=== PATIENT | female | born 1995 | race Caucasian/White ===

== ENCOUNTER 2024-01-31 13:54 | Outpatient (CLI) | payer MEDICARE, SELFPAY ==
--- NOTE | 2024-01-31 14:00 | CRLHL7_ITS ---
For Patients: As a result of the Cures Act, medical imaging exams and procedure reports are released immediately into your electronic medical record. You may view this report before your referring provider. If you have questions, please contact your health care provider. INDICATION: First trimester scan, establish dates. COMPARISON: None. TECHNIQUE: Real-time andrade-scale imaging of the pelvis was performed. FINDINGS: Sonographic imaging demonstrates a single living intrauterine gestation. The embryo demonstrates a regular cardiac rate measuring 152 beats per minute. The embryo`s crown-rump length measurement of 6.0 cm corresponds to a gestational age of 12 weeks 3 days with a sonographic due date of 08/11/2024. There is a normal-appearing yolk sac. There are no gross abnormalities noted within the embryo at this early state of development. The gestational sac has a normal appearance. There is a 2.9 x 0.9 x 1.1 cm perigestational hemorrhage. The amount of fluid within the sac appears appropriate for gestational age. The cervix is closed. The myometrium appears normal. Right ovary not visualized. Corpus luteal cyst left ovary. There are no suspicious fluid collections noted in the cul-de-sac. IMPRESSION: Single living intrauterine with sonographic gestational age 12 weeks 3 days and sonographic due date of 08/11/2024. Subchorionic hemorrhage measures 2.9 x 0.9 x 1.1 cm. Dictated by Sadiq Curtis MD @ 02/01/2024 7:53:39 AM (Electronically Signed)
== END 2024-01-31 13:55 | disposition home or self-care (01) ==
LOC: US 13:55
PROVIDERS: Visit Provider Registered Nurse
DX: Z34.91 Encounter for supervision of normal pregnancy, unspecified, first trimester (principal); O20.9 Hemorrhage in early pregnancy, unspecified; Z3A.12 12 weeks gestation of pregnancy
CPT/HCPCS: 76801; 87491; 87591

== ENCOUNTER 2024-01-31 14:58 | Outpatient (CLI) | payer MEDICARE, SELFPAY ==
[2024-01-31 19:30] LABS: Chlamydia DNA Amplified* NOT DETECTED (No Detected); GC DNA Amplified* NOT DETECTED (No Detected)
[2024-02-03 17:46] LABS: HPV Source Cervix; HPV, High Risk by TMA Not Detected
== END 2024-01-31 14:59 | disposition home or self-care (01) ==
PROVIDERS: Visit Provider Registered Nurse
DX: Z12.4 Encounter for screening for malignant neoplasm of cervix (principal); Z34.90 Encounter for supervision of normal pregnancy, unspecified, unspecified trimester
CPT/HCPCS: 87491; 87591; 87624; 87625; 88141; 88142

== ENCOUNTER 2024-03-27 14:31 | Outpatient (CLI) | payer MEDICARE, SELFPAY ==
--- NOTE | 2024-03-27 14:45 | CRLHL7_ITS ---
For Patients: As a result of the Century Cures Act, medical imaging exams and procedure reports are released immediately into your electronic medical record. You may view this report before your referring provider. If you have questions, please contact your health care provider. INDICATION: survey. TECHNIQUE: Conventional transabdominal two-dimensional grayscale ultrasound examination. COMPARISON: None. FINDINGS: There is a living fetus with gestational age of 20 weeks by LMP and 20 weeks 3 days by today`s measurements. EDC based on LMP is 08/14/2024. BPD: 4.7 cm, 20 weeks 2 days Head circumference: 17.7 cm, 20 weeks 1 day Abdominal circumference: 16.2 cm, 21 weeks 2 days Femur length: 3.1 cm, 19 weeks 4 days HC/AC: 1.09 The weight is estimated at 354 grams, the 71st percentile. The heart rate is measured at 141 beats per minute and the rhythm appears regular. The head and spine are grossly intact. No gross facial abnormality is evident. The upper lip is intact. Four cardiac chambers are demonstrated. The heart and stomach appear to be on the same side. The diaphragm is intact. Two kidneys and a bladder are demonstrated. The cord insertion is normal and three cord vessels are noted. Four extremities are demonstrated. The amniotic fluid volume is within normal limits. The placenta is anterior with no evidence of previa. The placenta is low-lying with the inferior edge of the placenta 1.4 cm from the internal os. The cervical length is normal at 5.9 cm. IMPRESSION: 1. Living fetus with gestational age of 20 weeks by LMP and 20 weeks 3 days by today`s measurements. EDC based on LMP is 08/14/2024. 2. No anomaly evident. 3. Anterior low-lying placenta with inferior placental edge 1.4 cm from the internal os. Dictated by Mele Mireles MD @ 03/30/2024 5:55:07 AM (Electronically Signed)
== END 2024-03-27 14:32 | disposition home or self-care (01) ==
LOC: US 14:32
PROVIDERS: Visit Provider Registered Nurse
DX: Z34.92 Encounter for supervision of normal pregnancy, unspecified, second trimester (principal); O44.42 Low lying placenta NOS or without hemorrhage, second trimester; Z3A.20 20 weeks gestation of pregnancy
CPT/HCPCS: 76805; 76817

== ENCOUNTER 2024-03-27 14:39 | Outpatient (CLI) | payer MEDICARE, SELFPAY ==
--- OUTSIDE RECORDS SUMMARY | 2024-03-31 23:42 | XMS_ITS | Encounter Summary ---
Author Organization [facility] Address [address] [place] [address]. [place] [address] Care Team Providers Care Ton Container Shipper Name Role Phone Sydney Weldon GIOVANNI [facility] Primary Care Pro vider Encounter Details Date Type Department Care Team (Late st Contact Info) Description 06/12/2021 External Order Results [facility] [address] [place] [address] Outside, Provider Social History Tobacco Use Types Packs/Day Years Used Date Smoking Tobacco: Never Smokeless Tobacco: Never Comments:non smoking home Alcohol Use Standard Drinks/Week Comments No 0 (1 standard drink = 0.6 oz pur e alcohol) [place] Depression Scale Answer Date Recorded [place] Depression Score 0 06/09/2020 Last EPDS Self Harm Result Not on file 06/09 Comments No Sex and Gender Information Value Date Recorded Sex Assigned at Not on file Legal Sex Female 4:49 AM HAM PUMPER Gender Identity Not on file Sexual Orientation Not on file documented as of this encounter Plan of Treatment Not on file documented as of this encounter Procedures Procedure Name Priority Date/Time Associated Diagnosis Comments HEPATITIS C ANTIBODY (EXTERNAL RESULT) Routine 06/12/2021 8:29 AM HAM PUMPER URINE CULTURE (OB EXTERNAL RESULT) Routine 06/12/2021 8:29 AM HAM PUMPER TREPONEMA PALLIDUM ANTIBODY (RPR) (EXTERNAL RESULT) Routine 06/12/2021 8:29 AM HAM PUMPER HIV 1&2 ANTIBODY (EXTERNAL RESULT) Routine 06/12/2021 8:29 AM HAM PUMPER RUBELLA ANTIBODY IGG (EXTERNAL RESULT) Routine 06/12/2021 8:29 AM HAM PUMPER ABO & RH (EXTERNAL RESULT) Routine 06/12/2021 8:29 AM HAM PUMPER GONORRHEA (EXTERNAL RESULT) Routine 06/12/2021 8:29 AM HAM PUMPER CHLAMYDIA TRACHOMATIS PCR (EXTERNAL RESULT) Routine 06/12/2021 8:29 AM HAM PUMPER CBC WITH PLATELETS & DIFFERENTIAL Routine 06/12/2021 8:29 AM HAM PUMPER HEPATITIS B SURFACE ANTIGEN Routine 06/12/2021 8:29 AM HAM PUMPER documented in this encounter Results * Gonorrhea (External Result) (06/12/2021 8:29 AM HAM PUMPER) N Gonorrhea PCR Negative Negative NON-INTERFACE D (ONBASE SCANS) 06/12/2021 8:29 AM HAM PUMPER Narrative BREEZE PFT - 06/26/2021 11:16 AM HAM PUMPER Verified by Sotero Kenney on 06/26/2021. us Provider Outside LAB - HIM EXTERNAL RESULT Edite d Result - Final ASIMEZE PFT NON-INTERFACED (ONBASE SCANS) * Chlamydia Trachomatis PCR (External Result) (06/12/2021 8:29 AM HAM PUMPER) Chlamydia Trachomatis PCR Negative Negative NON-INTERFAC E D (ONBASE SCANS) 06/12/2021 8:29 AM HAM PUMPER Narrative BREEZE PFT - 06/26/2021 11:16 AM HAM PUMPER Verified by Sotero Kenney on 06/26/2021. us Provider Outside LAB - HIM EXTERNAL RESULT Edite d Result - Final ASIMEZE PFT NON-INTERFACED (ONBASE SCANS) * Hepatitis C Antibody (External Result) (06/12/2021 8:29 AM HAM PUMPER) Hepatitis C Antibody (External) <0.1 0.0 - 0.9 ratio NON-INTERFACED (ONBASE SCANS) 06/12/2021 8:29 AM HAM PUMPER Narrative BREEZE PFT - 06/26/2021 11:16 AM HAM PUMPER Verified by Sotero Kenney on 06/26/2021. us Provider Outside LAB - HIM EXTERNAL RESULT Edite d Result - Final BREEZE PFT NON-INTERFACED (ONBASE SCANS) * Urine Culture (OB External Result) (06/12/2021 8:29 AM HAM PUMPER) Urine Culture OB Nurse Interpretation (External Result) No growth NON-INTERF AC ED (ONBASE SCANS) 06/12/2021 8:29 AM HAM PUMPER Narrative BREEZE PFT - 06/26/2021 11:16 AM HAM PUMPER Verified by Sotero Kenney on 06/26/2021. us Provider Outside LAB - HIM EXTERNAL RESULT Edite d Result - Final BREEZE PFT NON-INTERFACED (ONBASE SCANS) * CBC with Platelets & Differential (06/12/2021 8:29 AM HAM PUMPER) WBC Count (External) 6.7 3.4 - 10.8 x10E3/uL NON-INTERFACE D (ONBASE SCANS) RBC Count (External) 4.74 3.77 - 5.28 x10E6/uL NON-INTERFACE D (ONBASE SCANS) Hemoglobin (External) 13.7 11.1 - 15.9 g/dL NON-INTERFACE D (ONBASE SCANS) Hematocrit (External) 41.6 34.0 - 46.6 % NON-INTERFACE D (ONBASE SCANS) MCV (External) 88 79 - 97 fL NON- INTERFACE D (ONBASE SCANS) MCH (External) 28.9 26.6 - 33.0 pg NON-INTERFACE D (ONBASE SCANS) MCHC (External) 32.9 31.5 - 35.7 g/dL NON-INTERFACE D (ONBASE SCANS) RDW (External) 13.4 11.7 - 15.4 % NON-INTERFACE D (ONBASE SCANS) Platelet Count (External) 199 150 - 450 x10E3/uL NON-INTERFACE D (ONBASE SCANS) % Neutrophils (External) 62 Not Estab. % NON-INTERFACE D (ONBASE SCANS) % Lymphocytes (External) 27 Not Estab. % NON-INTERFACE D (ONBASE SCANS) % Monocytes (External) 8 Not Estab. % NON-INTERFACE D (ONBASE SCANS) % Eosinophils (External) 2 Not Estab. % NON-INTERFACE D (ONBASE SCANS) % Basophils (External) 1 Not Estab. % NON-INTERFACE D (ONBASE SCANS) Absolute Neutrophils (External) 4.2 1.4 - 7.0 x10E3/uL NON-INTERFACE D (ONBASE SCANS) Absolute Lymphocytes (External) 1.8 0.7 - 3.1 x10E3/uL NON-INTERFACE D (ONBASE SCANS) Absolute Monocytes (External) 0.5 0.1 - 0.9 x10E3/uL NON-INTERFACE D (ONBASE SCANS) Absolute Eosinophils (External) 0.1 0.0 - 0.4 x10E3/uL NON-INTERFACE D (ONBASE SCANS) Absolute Basophils (External) 0.0 0.0 - 0.2 x10E3/uL NON-INTERFACE D (ONBASE SCANS) % Immature Granulocytes (External) 0 Not Estab. % NON-INTERFACE D (ONBASE SCANS) Absolute Immature Granulocytes (External) 0.0 0.0 - 0.1 x10E3/uL NON-INTERFACE D (ONBASE SCANS) Blood 06/12/2021 8:29 AM HAM PUMPER Narrative MILES RANGEL - 06/26/2021 11:16 AM HAM PUMPER Verified by Carlos Manuel Arzola on 06/26/2021. us Provider Outside LAB - BLOOD ORDERABLES Edited R esult - Final BREEZE PFT NON-INTERFACED (ONBASE SCANS) * HIV-1 Antibody (External Result) (06/12/2021 8:29 AM HAM PUMPER) HIV 1&2 Antibody (External) Non Reactive NON REACTIVE NON-INTERFAC ED (ONBASE SCANS) 06/12/2021 8:29 AM HAM PUMPER Narrative BREEZE PFT - 06/26/2021 11:16 AM HAM PUMPER Verified by Carlos Manuel Arzola on 06/26/2021. us Provider Outside LAB - HIM EXTERNAL RESULT Edite d Result - Final MILES PFT NON-INTERFACED (ONBASE SCANS) * ABO & RH (External Result) (06/12/2021 8:29 AM HAM PUMPER) ABO (External) O NON-I NTERFACE D (ONBASE SCANS) Rh (External) Positive NON-IN TERFACE D (ONBASE SCANS) Comment:ANTIBODY SCREEN: Neg ative 06/12/2021 8:29 AM HAM PUMPER Narrative BREEZE PFT - 06/26/2021 11:16 AM HAM PUMPER Verified by Carlos Manuel Arzola on 06/26/2021. us Provider Outside LAB - HIM EXTERNAL RESULT Edite d Result - Final MILES PFT NON-INTERFACED (ONBASE SCANS) * Rubella Antibody IgG (External Result) (06/12/2021 8:29 AM HAM PUMPER) Rubella Antibody IgG (External) 13.70 IMMUNE >0.99 index NON-INTERFACED (ONBASE SCANS) 06/12/2021 8:29 AM HAM PUMPER Narrative BREEZE PFT - 06/26/2021 11:16 AM HAM PUMPER Verified by Carlos Manuel Arzola on 06/26/2021. us Provider Outside LAB - HIM EXTERNAL RESULT Edite d Result - Final BREEZE PFT NON-INTERFACED (ONBASE SCANS) * Treponema Pallidum Antibody (RPR) (External Result) (06/12/2021 8:29 AM HAM PUMPER) Treponema Palldum Antibody (External) Non Reactive NON REACTIVE NON-INTERFAC ED (ONBASE SCANS) 06/12/2021 8:29 AM HAM PUMPER Narrative BREEZE PFT - 06/26/2021 11:16 AM HAM PUMPER Verified by Carlos Manuel Arzola on 06/26/2021. us Provider Outside LAB - HIM EXTERNAL RESULT Edite d Result - Final Performing Organization Address [facility] Co de Phone Number BREEZE PFT NON-INTERFACED (ONBASE SCANS) * Hepatitis B surface antigen (06/12/2021 8:29 AM HAM PUMPER) Hep B Surface Agn (External) Negative NEGATIVE NON-INTERFACE D (ONBASE SCANS) Blood 06/12/2021 8:29 AM HAM PUMPER Narrative BREEZE PFT - 06/26/2021 11:16 AM HAM PUMPER Verified by Carlos Manuel Arzola on 06/26/2021. us Provider Outside LAB - BLOOD ORDERABLES Edited R esult - Final Performing Organization Address City/[facility]/ZIP Co de Phone Number BREEZE PFT NON-INTERFACED (ONBASE SCANS) documented in this encounter Visit Diagnoses Not on filedocumented in this encounter Care Teams Ton Container Shipper Relationship Specialty Start Date End Date Sydney Weldon APRN CN [facility] OBGYN CONSULT [address] [facility] [address] [place] [address] PCP - General Midwives 10/10/17 documented as of this encounter
--- OUTSIDE RECORDS SUMMARY | 2024-03-31 23:42 | XMS_ITS | Encounter Summary ---
Author Organization [facility] Address [address] [place] [address]. [place] [address] Care Team Providers Care Lawn Mower Mechanic Name Role Phone Sydney Weldon [facility]OVANNI [facility] Primary Care Pro vider Encounter Details Date Type Department Care Team (Late st Contact Info) Description 12/08/2021 External Order Results [facility] [address] [place] [address] Outside, Provider Social History Tobacco Use Types Packs/Day Years Used Date Smoking Tobacco: Never Smokeless Tobacco: Never Comments:non smoking home Alcohol Use Standard Drinks/Week Comments No 0 (1 standard drink = 0.6 oz pur e alcohol) [place] Depression Scale Answer Date Recorded [place] Depression Score 0 06/09/2020 Last EPDS Self Harm Result Not on file 06/09 Comments No Sex and Gender Information Value Date Recorded Sex Assigned at Not on file Legal Sex Female 4:49 AM EXECUTIVE CYBER LEADER Gender Identity Not on file Sexual Orientation Not on file documented as of this encounter Plan of Treatment Not on file documented as of this encounter Procedures Procedure Name Priority Date/Time Associated Diagnosis Comments HEMOGLOBIN Routine 12/08/2021 8:30 AM CDT documented in this encounter Results * Hemoglobin (12/08/2021 8:30 AM CDT) Hemoglobin (External) 12.1 12.0 - 15.0 G/DL NON-INTERFACED (ONBASE SCANS) Blood 12/08/2021 8:30 AM CDT Narrative MILES PFT - 12/15/2021 8:49 AM CDT Verified by Sotero Kenney on 12/15/2021. us Provider Outside LAB - BLOOD ORDERABLES Edited R esult - Final MILES PFT NON-INTERFACED (ONBASE SCANS) documented in this encounter Visit Diagnoses Not on filedocumented in this encounter Care Teams Lawn Mower Mechanic Relationship Specialty Start Date End Date Sydney Weldon APRN CNM [facility] OBGYN CONSULT [address] [place] [address] PCP - General Midwives 10/10/17 documented as of this encounter
--- OUTSIDE RECORDS SUMMARY | 2024-03-31 23:42 | XMS_ITS | Referral Summary ---
Author Organization [facility] Address [address] [place] [address]. [place] [address] Care Team Providers Care Copy Center Associate Name Role Phone Sydney Weldonhleen GIOVANNI [facility] Primary Care Pro vider Allergies No known active allergies Medications Vit-Fe Fumarate-FA ( MULTIVITAMIN PLUS IRON) 27-0.8 MG TABS per tablet Take 1 tablet by mouth daily Active acetaminophen (TYLENOL) 325 MG tabletIndications :Normal labor and delivery Take 2 tablets (650 mg) by mouth every 4 hours as needed for mild pain or fever (greater than or equal to 38 C /100.4 F (oral) or 38.5 C/ 101.4 F (core).) 1 Active ibuprofen (ADVIL/MOTRIN) 800 MG tabletIndications :Normal labor and delivery Take 1 tablet (800 mg) by mouth every 6 hours as needed for other (cramping) 1 Active Active Problems Problem Noted Date Diagnosed Date Encounter for triage in patient 022 Indication for care in labor or delivery 018 Normal labor and delivery 11/17/2017 Immunizations Name Administration Dates Next Due TDAP (Adacel,Boostrix) 01/05/2022() Social History Tobacco Use Types Packs/Day Years Used Date Smoking Tobacco: Never Smokeless Tobacco: Never Comments:non smoking home Alcohol Use Standard Drinks/Week Comments No 0 (1 standard drink = 0.6 oz pur e alcohol) [place] Depression Scale Answer Date Recorded Last EPDS Total Score Not on file 01/04/2022 The thought of harming myself has occurred to me . Never 01/04/2022 Adolescent Education Answer Date Record ed Getting School Help Needed Not on file 02/09 Comments No Sex and Gender Information Value Date Recorded Sex Assigned at Not on file Legal Sex Female 4:49 AM COTTON BUYER Gender Identity Not on file Sexual Orientation Not on file Last Filed Vital Signs Vital Sign Reading Time Taken Comments Blood Pressure 131/59 01/05/2022 8:30 AM CDT Pulse 74 01/05/2022 8:30 AM CDT Temperature 36.9 C (98.5 F) 01/05/2022 8:30 AM CDT Respiratory Rate 16 01/05/2022 8:30 AM CDT Oxygen Saturation - - Inhaled Oxygen Concentration - - Weight 71.2 kg (157 lb) 08/05/2015 4:32 PM CDT Height 177.8 cm (5' 10) 06/08/2020 11:35 PM COTTON BUYER Body Mass Index - - Plan of Treatment Not on file Procedures Procedure Name Priority Date/Time Associated Diagnosis Comments HIV 1&2 ANTIBODY (EXTERNAL RESULT) Routine 06/12/2021 8:29 AM COTTON BUYER HEPATITIS C ANTIBODY (EXTERNAL RESULT) Routine 06/12/2021 8:29 AM COTTON BUYER from Last 3 Months or Most Recently Relevant to Health Maintenance Results * Hepatitis C Antibody (External Result) (06/12/2021 8:29 AM COTTON BUYER) Hepatitis C Antibody (External) <0.1 0.0 - 0.9 ratio NON-INTERFACED (ONBASE SCANS) 06/12/2021 8:29 AM COTTON BUYER Narrative MILES PFT - 06/26/2021 11:16 AM COTTON BUYER Verified by Sotero Kenney on 06/26/2021. us Provider Outside LAB - HIM EXTERNAL RESULT Edite d Result - Final MILES PFT NON-INTERFACED (ONBASE SCANS) * HIV-1 Antibody (External Result) (06/12/2021 8:29 AM COTTON BUYER) HIV 1&2 Antibody (External) Non Reactive NON REACTIVE NON-INTERFAC ED (ONBASE SCANS) 06/12/2021 8:29 AM COTTON BUYER Narrative MILES RANGEL - 06/26/2021 11:16 AM COTTON BUYER Verified by Carlos Manuel Arzola on 06/26/2021. us Provider Outside LAB - HIM EXTERNAL RESULT Edite d Result - Final MILES RANGEL NON-INTERFACED (ONBASE SCANS) from Last 3 Months or Most Recently Relevant to Health Maintenance Advance Directives For more information, please contact: [phone] * Full Code (Latest Code Status on File) Date Activated Date Inactivated Comments 01/04/2022 6:55 AM 01/05/2022 2:45 PM All basic an d advanced life-sustaining interventions are performed as appropriate Question Answer Comments Code status determined by: Other (please tori t) * Full Code Date Activated Date Inactivated Comments 01/03/2022 8:13 PM 01/04/2022 5:39 AM All basic an d advanced life-sustaining interventions are performed as appropriate Question Answer Comments Code status determined by: Discussion with patie nt/ legal decision maker * Full Code Date Activated Date Inactivated Comments 06/09/2020 5:28 PM 06/10/2020 3:53 PM All basic an d advanced life-sustaining interventions are performed as appropriate Question Answer Comments Code status determined by: Discussion with patie nt/ legal decision maker Care Teams Copy Center Associate Relationship Specialty Start Date End Date Sydney Weldon APRN CNM [facility] OBGYN CONSULT [address] [place] [address] PCP - General Midwives 10/10/17
--- OUTSIDE RECORDS SUMMARY | 2024-03-31 23:42 | XMS_ITS | Clinical Summary ---
Author Organization [facility] Address [address] [place] [address]. [place] [address] Care Team Providers Care Terrestrial Ecologist Name Role Phone Sydney Weldonhleen GIOVANNI [facility] Primary Care Pro vider Allergies No known [...] drink = 0.6 oz pur e alcohol) [place] Depression Scale Answer Date Recorded Last EPDS Total Score Not on file 01/04/2022 The thought of harming myself has occurred to me . Never 01/04/2022 Adolescent Education Answer Date Record ed Getting School Help Needed Not on file 02/09 Comments No Sex and Gender Information Value Date Recorded Sex Assigned at Not on file Legal Sex Female 4:49 AM COSMETIC ASSEMBLER Gender Identity Not on file Sexual Orientation [...] 177.8 cm (5' 10) 06/08/2020 11:35 PM COSMETIC ASSEMBLER Body Mass Index - - Plan of Treatment Health Maintenance Due Date Last Done Comments ADVANCE CARE PLANNING 1993 ANNUAL REVIEW OF HM ORDERS 1993 YEARLY PREVENTIVE VISIT 1993 HEPATITIS B IMMUNIZATION (1 of 3 - 19+ 3-dose series) 2012 PAP 2014 DTAP/TDAP/TD IMMUNIZATION (1 - Tdap) 2018 PHQ-2 (once per calendar year) 2023 COVID-19 Vaccine (1 - 2023-2 5 season) 2024 INFLUENZA VACCINE (#1) 2024 RSV VACCINE (1 - 1-dose 75+ series) 2068 HEPATITIS C SCREENING Completed 06/12/2021 HIV SCREENING Completed 06/12/2021, 11/10/2019, 05/01/2017 HPV IMMUNIZATION Aged Out No longer e ligible based on patient's age to complete this topic MENINGITIS IMMUNIZATION Aged Out No l onger eligible based on patient's age to complete this topic Pneumococcal Vaccine: Pediatrics (0 to 5 Years) and At-Risk Patients (6 to 64 Years) Aged Out No longer eligible b ased on patient's age to complete this topic RSV MONOCLONAL ANTIBODY Aged Out No l onger eligible based on patient's age to complete this topic Procedures Procedure Name Priority Date/Time Associated Diagnosis Comments HIV 1&2 ANTIBODY (EXTERNAL RESULT) Routine 06/12/2021 8:29 AM COSMETIC ASSEMBLER HEPATITIS C ANTIBODY (EXTERNAL RESULT) Routine 06/12/2021 8:29 AM COSMETIC ASSEMBLER from Last 3 Months or Most Recently Relevant to Health Maintenance Results * Hepatitis C Antibody (External Result) (06/12/2021 8:29 AM COSMETIC ASSEMBLER) Hepatitis C Antibody (External) <0.1 0.0 - 0.9 ratio NON-INTERFACED (ONBASE SCANS) 06/12/2021 8:29 AM COSMETIC ASSEMBLER Narrative BREEZE PFT - 06/26/2021 11:16 AM COSMETIC ASSEMBLER Verified by Sotero Kenney on 06/26/2021. Provider Outside LAB - HIM EXTERNAL RESULT Edite d Result - Final BREEZE PFT NON-INTERFACED (ONBASE SCANS) * HIV-1 Antibody (External Result) (06/12/2021 8:29 AM COSMETIC ASSEMBLER) HIV 1&2 Antibody (External) Non Reactive NON REACTIVE NON-INTERFAC ED (ONBASE SCANS) 06/12/2021 8:29 AM COSMETIC ASSEMBLER Narrative BREEZE PFT - 06/26/2021 11:16 AM COSMETIC ASSEMBLER Verified by Carlos Manuel Arzola on 06/26/2021. us Provider Outside LAB - HIM EXTERNAL RESULT Edite d Result - Final BREEZE PFT NON-INTERFACED (ONBASE SCANS) from Last 3 Months or Most Recently Relevant to Health Maintenance Advance Directives For more information, please contact: [phone] * Full Code (Latest Code Status on File) Date Activated Date Inactivated Comments 01/04/2022 6:55 AM 01/05/2022 2:45 PM All basic an d advanced life-sustaining interventions are performed as appropriate Question Answer Comments Code status determined by: Other (please documen t) * Full Code Date Activated Date Inactivated Comments 01/03/2022 8:13 PM 01/04/2022 5:39 AM All basic an d advanced life-sustaining interventions are performed as appropriate Question Answer Comments Code status determined by: Discussion with zahra nt/ legal decision maker * Full Code Date Activated Date Inactivated Comments 06/09/2020 5:28 PM 06/10/2020 3:53 PM All basic an d advanced life-sustaining interventions are performed as appropriate Question Answer Comments Code status determined by: Discussion with zahra nt/ legal decision maker Care Teams Terrestrial Ecologist Relationship Specialty Start Date End Date Sydney Weldon APRN CNM [facility] OBGYN CONSULT [address] [address] PCP - General Midwives 10/10/17
--- OUTSIDE RECORDS SUMMARY | 2024-03-31 23:42 | XMS_ITS | Encounter Summary ---
Author Organization [facility] Address [address] [place] [address]. [place] [address] Care Team Providers Care Outsoles Channel Opener Name Role Phone Sydney Weldon GIOVANNI [facility] Primary Care Pro vider Encounter Details Date Type Department Care Team (Late st Contact Info) Description 01/03/2022 Orders Only [facility] Centralized Scheduling [address] [place] [address] Chas Stack MD [address] [place] [address] Encounter for laboratory testing for COVID-19 virus Social History Tobacco Use Types Packs/Day Years Used Date Smoking Tobacco: Never Smokeless Tobacco: Never Comments:non smoking home Alcohol Use Standard Drinks/Week Comments No 0 (1 standard drink = 0.6 oz pur e alcohol) Hoyt Depression Scale Answer Date Recorded Last EPDS Total Score Not on file 01/04/2022 The thought of harming myself has occurred to me . Never 01/04/2022 Comments Yes Sex and Gender Information Value Date Recorded Sex Assigned at Not on file Legal Sex Female 4:49 AM SAP TECHNICAL DEVELOPER Gender Identity Not on file Sexual Orientation Not on file COVID-19 Exposure Response Date Recorded In the last 10 days, have yo u been in contact with someone who was confirmed or suspected to have Coronavirus/COVID-19? No / Unsure 01/03/2022 7:58 PM CDT documented as of this encounter Plan of Treatment Not on file documented as of this encounter Visit Diagnoses Diagnosis Encounter for laboratory testing for COVID-19 virus documented in this encounter Care Teams Outsoles Channel Opener Relationship Specialty Start Date End Date Shiraz Sydney GIOVANNI Conti [facility] [address] [facility] [address] [place] [address] PCP - [facility] 10/10/17 documented as of this encounter
== END 2024-03-27 14:40 | disposition home or self-care (01) ==
LOC: NFLDREF 03-31 23:40
PROVIDERS: Visit Provider Registered Nurse
DX: Z34.92 Encounter for supervision of normal pregnancy, unspecified, second trimester (principal); O44.42 Low lying placenta NOS or without hemorrhage, second trimester; Z3A.20 20 weeks gestation of pregnancy
CPT/HCPCS: 86592; 86703; 86704; 86706; 86762; 86787; 86803; 86850; 86900; 86901; 87086; 87340

== ENCOUNTER 2024-06-12 12:45 | Outpatient (CLI) | payer BC, SELFPAY | END 2024-06-12 12:46 | disposition home or self-care (01) | LOC: NFLDREF 06-17 08:04 | PROVIDERS: Visit Provider Midwife | DX: O44.43 Low lying placenta NOS or without hemorrhage, third trimester (principal); Z3A.32 32 weeks gestation of pregnancy | CPT/HCPCS: 86592 ==

== ENCOUNTER 2024-06-12 12:50 | Outpatient (CLI) | payer BC, SELFPAY | END 2024-06-12 12:51 | disposition home or self-care (01) | LOC: US 12:50 | PROVIDERS: Visit Provider Registered Nurse | DX: O44.43 Low lying placenta NOS or without hemorrhage, third trimester (principal); Z3A.32 32 weeks gestation of pregnancy | CPT/HCPCS: 76816; 76817 ==

== ENCOUNTER 2024-07-24 12:50 | Outpatient (CLI) | payer BC, SELFPAY ==
[2024-07-25 17:07] LABS: Strep B DNA Probe Negative (Negative)
[2024-07-25 17:08] LABS: Strep B Susceptibility Needed? No
== END 2024-07-24 12:51 | disposition home or self-care (01) ==
LOC: FRMREF 12:50
PROVIDERS: Visit Provider Obstetrics & Gynecology
DX: Z34.93 Encounter for supervision of normal pregnancy, unspecified, third trimester (principal); Z3A.37 37 weeks gestation of pregnancy
CPT/HCPCS: 87081; 87653

== ENCOUNTER 2024-08-10 11:43 | Inpatient (IN) | payer BC, SELFPAY ==
[2024-08-10] VITALS (27 sets, daily range): BP systolic 113–142; BP diastolic 62–82; PULSE 55–85; RESP 16–18; TEMP 36.7–37.1; O2SAT 96–100; BMI 29.1
--- NOTE | 2024-08-10 12:30 | P.LDBA_ITS ---
Subjective History of Present Illness Date Seen: 08/10/24 Narrative: Sofi is being admitted to Labor and Delivery for spontaneous labor. She is a 28 year old at 39.3 weeks gestation. Her full history and physical was dictated by Dr. Lake on 07/24/24. Please see this for details. Specific Issues/Plans : Uriel. Children: Loreto, Meng, Jemal. Baby: boy:) Hep B nonimmune. Discuss at next visit.[] H&P:CGM on 07/24/24 # Missed appointments from 31 weeks to 37 weeks # low lying placenta resolved, 3.0cm from os @ 31wks # Hx hemorrhage-after first Genetic testing: declined COVID: Not vaccinated. Declined. Flu: declined Tdap: declined RSV: declined 32 week mental health: [] Last pap: Pt. denies h/o abnormal pap. OB - Problem Based A/P Additional Plan (1) Pain during labor: Status: Acute (2) 39 weeks gestation of : Status: Acute Plan Assessment:??G 4 P 3 at 39.3 weeks gestation?? GBS negative? Patient is coping well with challenges of labor.?? Labor type: Spontaneous, Active labor? Category 1 FHR pattern.? complicated by: gap in care from 31-37 week, hx of hemorrhage Plan:?? * ?Admit to L & D? * IV access: NA * Monitoring per policy: intermittent? * Candidate for analgesia of choice.? Planning nitrous for pain management * Desires waterbirth.? Consent signed and Hep C negative. * Expectant management at this time ? * Patient encouraged to reposition and ambulate to promote physiologic labor and . * Anticipate ? Delivery/Labor/Induction Plan Plan: expectant management OB Exam Physical Exam Vital signs: Temp Pulse Resp BP Pulse Ox 98.4 F 75 18 123/69 97 08/10/24 09:29 08/10/24 09:21 08/10/24 09:29 08/10/24 09:21 08/10/24 09:18 Narrative: Vitals Reviewed Constitutional:? Alert and oriented x3 HEENT:? Normocephalic, atraumatic Neck:? Supple Lungs:? Clear to auscultation bilaterally Heart:? Regular rate and rhythm, no murmur, rub or gallop Abdomen:? Soft, nontender, and gravid. Vertex by Pee's, confirmed with cervical exam. Extremities:? No edema or erythema Cervix: 6 cm/90%/-1 station/vertex per RN NST: 130 bpm/moderate variability/+accelerations/- decelerations/moderatecontractions Detailed Labor and Delivery Exam Patient Gravid: Yes
[2024-08-10 13:03] LABS: Basophils Percent Auto 0.1 % (0.0-3.0); Eosinophils Percent Auto 0.2 % (0.0-7.0); Hematocrit 37.8 % (33.0-51.0); Hemoglobin* 13.1 gm/dL (12.0-16.0); Immature Granulocytes Pct Auto 0.3 %; Lymphocytes Percent Auto 8.1 % (20-44); Mean Corpuscular HGB Conc 35 gm/dL (32-36); Mean Corpuscular Hemoglobin 29 pg (26-34); Mean Corpuscular Volume 85 fL (80-100); Monocytes Percent Auto 4.6 % (0.0-11.0); Neutrophils Percent Auto 86.7 % (42.0-72.0); Platelet Count* 203 K/uL (140-440); RDW Coefficient of Variation % 12.7 % (11.5-15.5); Red Blood Count 4.45 m/uL (4.00-5.20); White Blood Count* 14.28 K/uL (4.50-11.00)
[2024-08-10 13:12] LABS: Slide Review Reflex No
[2024-08-10] MEDS: LACTATED RINGERS 1000 ML 1,000 ML 900 ML IV (13:44)
[2024-08-10] MEDS: fentaNYL 100 MCG/2 ML inj 25 MCG INTRATHECA (14:10)
--- NOTE | 2024-08-10 14:16 | PM.ANBPRC ---
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 . What is your current living situation?: I presently have a place to live In the past 12 months, utilities in danger of being shut off: no In past 12 months, lack of transportation kept you from medical appts, meetings, work, or getting things needed for daily living: no In the past 12 mos, have been you worried that your food would run out before you had money to buy more?: never true In the past 12 mos, the food you bought just didn't last and you didn't have money to buy more?: never true Smoking Status: Never smoker How often does anyone, including family, friends and others, physically hurt you: never How often does anyone, including family, friends and others, insult or talk down to you: never How often does anyone, including family, friends and others, threaten you with harm: never How often does anyone, including family, friends and others, scream or curse at you: never Meds Home Medications and Allergies Home Medications ?Medication ?Instructions ?Recorded ?Confirmed ?Type B.coagulans 2 billion cap PO 01/31/24 08/05/24 History cell-digestive enzymes combo no.10 capsule (Digestive Advantage Probiotics Plus Gas) docosahexaenoic acid 200 mg mg PO 01/31/24 08/05/24 History capsule ( DHA) cholecalciferol (vitamin D3) 50 50 mcg PO QDAY 06/12/24 08/05/24 History mcg (2,000 unit) capsule Allergies Allergy/AdvReac Type Severity Reaction Status Date / Time No Known Drug Allergies Allergy Verified 08/05/24 13:45 Results Labs Labs: Laboratory Results - last 24 hr 08/10/24 12:52 WBC 14.28 H RBC 4.45 Hgb 13.1 Hct 37.8 MCV 85 MCH 29 MCHC 35 RDW Coeff of Merle 12.7 Plt Count 203 Neut % (Auto) 86.7 H Lymph % (Auto) 8.1 L [place] % (Auto) 4.6 Eos % (Auto) 0.2 Baso % (Auto) 0.1 Neut # (Auto) 12.40 H Lymph # (Auto) 1.20 [place] # (Auto) 0.70 Eos # (Auto) 0.00 Baso # (Auto) 0.00 Abs Immat Gran (auto) 0.00 Imm/Tot Granulo (auto) 0.3 Vital Signs Vital Signs: Last Vital Signs Temp 98.4 F 08/10/24 09:29 Pulse 76 08/10/24 14:15 Resp 18 08/10/24 09:29 BP 115/76 08/10/24 14:15 Pulse Ox 98 08/10/24 14:13 Weight: 92.079 kg Height: 177.8 cm Anesthesia Procedures Intrathecal Patient Location: OB Start Time: 14:00 Stop Time: 14:15 Start Date: 08/10/24 Stop Date: 08/10/24 Reason for Block: procedure for pain Patient Position: sitting Performed By: Manjit Najera Preanesthetic Checklist: IV checked, risks and benefits discussed, surgical consent, monitors and equipment checked, pre-op evaluation, timeout performed and anesthesia consent Prep: chlorhexidine gluconate Monitoring: blood pressure monitoring, continuous pulse oximetry and heart rate Approach: midline Vertebral Space: lumbar (1-5) Needle Type: Saray Injection Technique: single-shot Needle gauge: 25 Needle Length (cm): 10 cm
--- NOTE | 2024-08-10 15:21 | PM.OBPNL ---
Subjective Time Seen by Provider: 14:44 Date Seen: 08/10/24 Narrative: ?Sofi is coping well with labor pain/contractions she was using nitrous for pain management but recently asked for an ITN and is now comfortable with her contractions. ?Uriel is with her for support. ?She requested AROM which was done for small amount of clear fluid seen. ? Objective Exam: VSS, afebrile General Appearance:? Calm, cooperative. ?No acute distress. ? Psychiatric Exam: Alert and oriented, appropriate affect Abdomen: Gravid Ctx: ?Q 2-5 min apart. ? ? ?Strong FHTs: ?Baseline: 130. ? ? Variability: moderate. ?Accels: +. ? ?Decels: ?-. SVE: 8/0 Membranes: ?AROM clear Vital Signs: Last Vital Signs Temp 98.1 F 08/10/24 14:29 Pulse 61 08/10/24 15:16 Resp 18 08/10/24 14:29 BP 120/68 08/10/24 15:16 Pulse Ox 98 08/10/24 14:23 Plan Plan: Assessment:?? at 39.3 weeks gestation?? GBS negative Patient is coping well with challenges of labor.?? Labor type: Spontaneous, Active labor? Category 1 FHR pattern.? complicated by: gap in care from 31-37 week, hx of hemorrhage Labor complicated by: none? Plan:?? Continue with routine intrapartum cares as ordered.?? Patient encouraged to move and change positions to promote physiologic labor and .?? Nonpharmacologic comfort measures per patient preference. ITN per anesthesia already placed Anticipate progress to NVD. ?
[2024-08-10] MEDS: OXYTOCIN 30 unit/500 ML in NS 30 UNIT/500 ML BAG 300 UNIT IVPB (16:29)
--- NOTE | 2024-08-10 17:21 | W.PM.VAGDE_ITS ---
OB Procedure Vag Delivery Mother Details Mother Details: The patient is a 28 year-old, 4, Para 3, admitted on 08/10/24 at 39.3 weeks gestation. : 4 Para: 4 Weeks Gestation: 39.3 Admission Date: 08/10/24 Additional Details Amniotic Membrane Status: AROM Amniotic Membrane Rupture Date: 08/10/24 Amniotic Membrane Rupture Time: 14:44 Amniotic Membrane Fluid Description: Clear Analgesia/Anesthesia Type: Intrathecal Waterbirth: No Pitcoin: Yes (for AMTSL) Intrapartal Events: None Delivery augmentation: rupture of membranes Labor Onset: 08:00 Complete: 16:16 Pushin:20 Heart: heart tones during second stage were Category I FHR 135 Delivery Details Delivery Date: 08/10/24 Delivery Time: 16:21 Route of delivery: Gender: Male Infant Viability: Alive; Heart Rate Present Position at Delivery: OA Delivery Details: 28?y.o?at 39.3 weeks.? Sofi arrived to the unit with complaints of irregular contractions starting yesterday afternoon which increased in regularity around 0800 today. She labored in her rom and was managing her pain with nitrous then requested and intrathecal for pain management. She progressed normally to 9cm. AROM was offered to her and she requested this. At 1444 AROM for small amount of clear fluid was done. She began to complain of back pressure and resumed use of nitrous with contractions. ? ? She became complete at 1616.??She pushed in left side positions effectively.??? Over one contraction she pushed baby out in excellent control, taking pauses when prompted. ? Spontaneous vaginal delivery at 1621 of?a viable?male .??Delivered in ve rtex OA position.??Shoulders delivered easily.? Spontaneous cry noted.??Infant placed on maternal abdomen.??Cord?was clamped and cut after a 5+ minute delay.??Nose and mouth were bulb suctioned.? Shoulder dystocia: no? Nuchal cord: no? Meconium stained?fluid: no? Water : no? ? ? 8 at 1 minute and 9 at 5 minutes.? Weight is pending. ? Placenta delivered spontaneously and?complete?at 1645 with a?3 vessel?cord.? There was approximately 200ml of blood with clots delivered with the placenta. ? Bleeding controlled with fundal massage and?pitocin?for AMTSL.? ? Lacerations:?none, intact ? Bleeding?post delivery?was: moderate. ?The fundus was firm to palpation.? Blood loss: 600?mL.? Blood loss measurement type: QBL? ? ? Sponge,?lap?and needles counts are correct.? Mother and infant were stable after delivery.? 1 Minute Interval Total Score: 8 5 Minute Interval Total Score: 9 Additional Details Shoulder Dystocia: No Placenta Delivery Time: 16:45 Placental Delivery Description: Spontaneous Procedure Done: Global Blood Loss: 600 Laceration: None Blood Loss Measurement Type: QBL Bakri Used: No Sponge/Need Count Correct: Yes Cord Vessel Description: 3 Vessels Event Summary Status: Mother and were stable after delivery. Disposition: floor
[2024-08-10] MEDS: ACETAMINOPHEN 500 MG TABLET 1000 MG PO (19:39)
[2024-08-11] MEDS: IBUPROFEN 600 MG TABLET PO ×3 (01:09→13:53)
[2024-08-11 01:12] VITALS: BP 106/69; PULSE 79; RESP 14; TEMP 36.9; O2SAT 97
[2024-08-11] MEDS: ACETAMINOPHEN 500 MG TABLET 1000 MG PO ×3 (01:57→15:52)
[2024-08-11 04:20] VITALS: BP 111/66; PULSE 69; RESP 16; TEMP 36.8; O2SAT 96
[2024-08-11] MEDS: DOCUSATE SODIUM 100 MG CAPSULE PO ×3 (04:38→17:25)
[2024-08-11 06:20] LABS: Hemoglobin* 10.9 gm/dL (12.0-16.0)
[2024-08-11 07:35] VITALS: BP 121/76; PULSE 81; RESP 16; O2SAT 96
--- NOTE | 2024-08-11 07:46 | P.DS_ITS ---
DS: Providers Provider Date Seen: 08/11/24 Date of admission: 08/10/24 11:43 Primary care physician: Not a Local Provider Admitting Clinician: Jose Vazquez CNM Attending Physician on discharge: Merari ROSENBERG APRN Date of Discharge: 08/11/24 DS: Diagnosis Discharge Diagnosis (1) care and examination of lactating mother: Status: Acute Exam Narrative: Exam Narrative: GENERAL APPEARANCE:? normal affect, alert, no distress MOOD:? appropriate CHEST:? clear to auscultation HEART:? regular rate and rhythm ABDOMEN:? soft, non-tender the uterine fundus is 3 cm below umbilicus, Midline and is appropriate for the stage of recovery. PERINEUM:? deferred, no lacerations EXTREMITIES:? normal and no edema Const: Vital Signs, click to edit/add: Vital Signs - 24 hr 08/10/24 09:18 08/10/24 09:21 08/10/24 09:29 Temperature 98.4 F Pulse Rate 75 Pulse Rate [Pulse Oximeter] Respiratory Rate 18 Blood Pressure 123/69 Blood Pressure [Ri ght Arm] Pulse Oximetry 97 Oxygen Delivery Me thod 08/10/24 14:03 08/10/24 14:07 08/10/24 14:08 Temperature Pulse Rate 55 L Pulse Rate [Pulse Oximeter] Respiratory Rate Blood Pressure 132/68 Blood Pressure [Ri ght Arm] Pulse Oximetry 100 100 Oxygen Delivery Me thod 08/10/24 14:09 08/10/24 14:11 08/10/24 14:13 Temperature Pulse Rate 60 62 65 Pulse Rate [Pulse Oximeter] Respiratory Rate Blood Pressure 127/70 123/70 122/70 Blood Pressure [Ri ght Arm] Pulse Oximetry 98 Oxygen Delivery Me thod 08/10/24 14:15 08/10/24 14:17 08/10/24 14:18 Temperature Pulse Rate 76 67 Pulse Rate [Pulse Oximeter] Respiratory Rate Blood Pressure 115/76 113/68 Blood Pressure [Ri ght Arm] Pulse Oximetry 99 Oxygen Delivery Me thod 08/10/24 14:23 08/10/24 14:29 08/10/24 14:29 Temperature 98.1 F Pulse Rate 71 70 Pulse Rate [Pulse Oximeter] Respiratory Rate 18 Blood Pressure 115/67 118/63 Blood Pressure [Ri ght Arm] Pulse Oximetry 98 Oxygen Delivery Me thod 08/10/24 14:47 08/10/24 15:02 08/10/24 15:16 Temperature Pulse Rate 60 60 61 Pulse Rate [Pulse Oximeter] Respiratory Rate Blood Pressure 120/64 116/62 120/68 Blood Pressure [Ri ght Arm] Pulse Oximetry Oxygen Delivery Me thod 08/10/24 15:31 08/10/24 16:13 08/10/24 16:46 Temperature 98.1 F Pulse Rate 65 66 Pulse Rate [Pulse Oximeter] Respiratory Rate 18 Blood Pressure 118/66 128/82 Blood Pressure [Ri ght Arm] Pulse Oximetry Oxygen Delivery Me thod 08/10/24 17:00 08/10/24 17:15 08/10/24 17:30 Temperature Pulse Rate 76 73 62 Pulse Rate [Pulse Oximeter] Respiratory Rate Blood Pressure 133/78 137/79 142/80 H Blood Pressure [Ri ght Arm] Pulse Oximetry Oxygen Delivery Pa thod 08/10/24 18:02 08/10/24 18:15 08/10/24 18:30 Temperature Pulse Rate 64 74 66 Pulse Rate [Pulse Oximeter] Respiratory Rate Blood Pressure 115/74 121/69 115/63 Blood Pressure [Ri ght Arm] Pulse Oximetry Oxygen Delivery Pa thod 08/10/24 18:30 08/10/24 19:42 08/11/24 01:12 Temperature 98.7 F 98.1 F 98.5 F Pulse Rate Pulse Rate [Pulse Oximeter] 85 79 Respiratory Rate 16 14 Blood Pressure Blood Pressure [Ri ght Arm] 116/78 106/69 Pulse Oximetry 96 [facility] 08/11/24 04:20 08/11/24 07:35 Temperature 98.3 F Pulse Rate Pulse Rate [Pulse Oximeter] 69 81 Respiratory Rate 16 16 Blood Pressure Blood Pressure [Ri ght Arm] 111/66 121/76 Pulse Oximetry 96 96 Oxygen Delivery Me od Room Air Room Air OB - DS: Summary Hospital Course Hospital Course: Sofi is a 28 y.o. G 4 now P 4004 who was admitted to L & D for spontaneous labor.? She had a NVD that was uncomplicated. The patient feels well.? The pain is well controlled with current medications.? She has no new complaints.? She is breast feeding and reports things are going well. the patient has done well.? Vitals have been stable.? She has remained afebrile.? Has a good appetite, is tolerating a general diet.? She is voiding without difficulty.? She is passing gas and has not had a bowel movement.? She is ambulating and denies any dizziness.? Has small amount of rubra lochia. She is planning NFP/Condoms for prevention.? ?? Problems: none? ?? plan:? Discharge home with baby.? Follow up in 2 weeks and 6 weeks.? , may see if needed? Hgb 10.9. ? For pain control of perineum, breast and pelvic pain, take 600 mg Ibuprofen every 6 hours as needed by mouth or 1000 mg acetaminophen (Tylenol) every 6 hours by mouth as needed. You can alternate these so you are taking something every 3 hours as needed. A heating pad can also be used for your abdomen or breasts. You may also take docusate sodium up to twice daily to soften your stools and help to prevent constipation. You may wean off of it when your stools return to normal.? Peripartum Data delivery method: Vaginal Episiotomy description: None [place] Gender: Male Infant Discharge Plan: Home Status at Discharge Overall status at discharge: patient is progressing back to baseline Time Spent with Patient Time attestation: Total time spent providing and/or coordinating discharge services: Time spent: Less than 30 minutes Discharge Plan Discharge Disposition: Home, Self-Care Date of Admission: 08/10/24 11:43 Attending Physician on Admission: Jose Vazqeuz Attending Provider on Discharge: Afia Cruz Primary Care Provider: Provider,Not a Local Condition: Stable Anticipated Discharge Date/Time: 08/11/24 18:17 Discharge Medications: Continued DHA 200 mg capsule PO Digest Adv Probio Plus Gas 2 billion cell capsule PO cholecalciferol (vitamin D3) 50 mcg (2,000 unit) capsule 50 mcg PO QDAY Discontinued hydroxyzine HCl 25 mg tablet 25 mg PO QHS Qty: 20 0RF Discharge Orders: Discharge Order (Routine); Ordered 08/11/24 Ordered By: Afia Cruz Patient Education: OB Care, OB Vaginal/Breast Feeding Additional Instructions: Discharge instructions were reviewed with the patient including signs and symptoms of infection and home going medications Nothing vaginally for 6 weeks: no tampons or intercourse Do not drive while taking narcotic pain medication(s) Off Work or School for 6 weeks Symptoms to report to doctor: * Bleeding that saturates more than one pad per hour * Passing clots larger than the size of a golf ball * Pain not relieved by prescribed medication * Fever above 100.4 degrees Fahrenheit * A foul vaginal odor * Difficulty in emotions, mood, and functions * Thoughts of hurting yourself and/or * Painful, reddened area in your breast * Any drainage, redness, or tenderness in your IV/epidural site * Severe headache that doesn't improve after taking medications * Changes in vision, including temporary loss of vision, blurred vision, and/or light sensitivity * Upper abdominal pain (usually under ribs on the right side) * Decrease in urination or painful, frequent urinating * Chest pain * Shortness of breath * Tenderness or pain with redness and/swelling in the calf(s) of your leg 2-week visit: discuss infant feeding concerns, review control options and screen for anxiety/depression. 6-week visit for an annual exam. consultation services are available to all mothers and babies for the first year after delivery.? To make an appointment, please call [phone]. For pain control of perineum, breast and pelvic pain, take 600 mg Ibuprofen every 6 hours as needed by mouth or 1000 mg acetaminophen (Tylenol) every 6 hours by mouth as needed. You can alternate these so you are taking something every 3 hours as needed. A heating pad can also be used for your abdomen or b reasts. You may also take docusate sodium up to twice daily to soften your stools and help to prevent constipation. You may wean off of it when your stools return to normal.? Activity Level: Activity as Tolerated and No strenuous activity Discharge Diet: Regular Follow Up Appointments: [facility] [Provider Group] Forms: MyHealth Info Instructions
--- NOTE | 2024-08-11 08:20 | PM.ANPOST ---
Post Anesthesia Note Post Anesthesia Note Patient seen: Inpatient Respiratory Status: adequate Cardiovascular Status: adequate Mental Status: baseline Pain: adequate Temp: baseline Anesthetic awareness: N/A Complications: none Follow care: none
[2024-08-11 12:17] VITALS: BP 116/69; RESP 16; O2SAT 97
[2024-08-11 13:02] LABS: Rapid Plasma Reagin (RPR) Non Reactive (Non Reactive)
== END 2024-08-11 19:24 | disposition home or self-care (01) | DRG 560 ==
LOC: OB OUT 11:43 → OB 11:43
PROVIDERS: Admitting Provider Advanced Practice Midwife; Visit Provider Advanced Practice Midwife
DX: O80 Encounter for full-term uncomplicated delivery (principal); Z3A.39 39 weeks gestation of pregnancy; Z37.0 Single live birth
CPT/HCPCS: 01967; 36415; 85018; 85025; 86592; A9270; J3010; J7120